=== PATIENT | female | born 1985 | race Caucasian/White ===

== ENCOUNTER 2018-09-22 11:22 | Day surgery (SDC) | payer MEDICAID, OTHER ==
[~2018-09-22] VITALS: Ht 157.5 cm; Wt 77.1 kg
[2018-09-22] VITALS (12 sets, daily range): BP systolic 95–122; BP diastolic 56–73; PULSE 66–75; RESP 12–18; Ht 157.5 cm; Wt 77.1 kg
[~2018-09-22 11:22] MED LIST: GLYCOPYRROLATE 0.4 MG INJ ONE; LIDOCAINE 2% (SDV) 5 ML INJ ONE; PROPOFOL 200 MG INJ ONE; ROCURONIUM 50 MG INJ ONE; SEVOFLURANE 15 MIN ONE
[2018-09-22] MEDS ORDERED: BUPIVACAINE 0.5% (SDV) 30 ML INJ ONE (11:48)
[2018-09-22] MEDS ORDERED: MIDAZOLAM 1 MG/ML 2 ML INJ ONE (11:50)
[2018-09-22] MEDS ORDERED: LIDOCAINE 2%/EPI 30 ML INJ ONE (11:53)
[2018-09-22] MEDS ORDERED: ASPI81TA52 PO (12:01)
--- NOTE | 2018-09-22 13:38 | PREAC ---
Date/Time of Note Date/Time of Note DATE: 09/22/18 TIME: 13:36 Anesthesia Eval and Record Evaluation Time Pre-Procedure Interview DATE: 09/22/18 TIME: 13:36 Age 32 Sex female NPO: 8 hrs Preoperative diagnosis left ankle instability Planned procedure left ankle arthroscopy, brostrum, lateral ligament reconstruction Past Medical History Past Medical History: None Surgery & Anesthesia Issues No known issue Meds Anticoagulation: No Beta Mel within 24 hr: No Reason Beta Mel not given: Pt. not on B-Mel Reported Medications Aspirin (Low Dose Aspirin) 81 Mg Tablet.dr, 81 MG PO DAILY, #30 TAB 09/22/18 Meds reviewed: Yes Allergies Coded Allergies: No Known Drug Allergies (Verified Allergy, Unknown, 09/22/18) Allergies Reviewed: Yes Labs/Studies Labs Reviewed: Reviewed by anesthesiologist test: Negative Pre-procedure Exam Last vitals Vital Signs Date Temp Pulse Resp B/P (MAP) Pulse Ox O2 O2 Flow FiO2 Time Delivery Rate 09/22/18 98.3 75 16 95/63 (74) 98 Room Air 11:34 Airway: Adequate mouth opening, Adequate thyromental dist Mallampati: Mallampati I Teeth: Normal Lung: Normal Heart: Normal ASA Physical Status ASA physical status: 1 Emergency: None Planned Anesthetic General/MAC: LMA Nerve block: Sciatic (left) Planned Pain Management Single shot nerve block, Parenteral pain med Pre-operative Attestations Prior to commencing anesthesia and surgery, the patient was re-evaluated, there was verification of: *The patient's identity *The results of appropriate recent lab work and preoperative vital signs *The above evaluation not changing prior to induction *Anesthetic plan, risk benefits, alternative and complications discussed with patient/family; questions answered; patient/family understands, accepts and wishes to proceed. MADHAV JORGENSEN Sep 22, 2018 13:38
[2018-09-22] MEDS ORDERED: THROMBIN (BOVINE) 5,000 UNIT VIAL TP ONE (14:33)
[2018-09-22] MEDS ORDERED: CA CHLORIDE 10% 10 ML SYRINGE ONE (14:33)
[2018-09-22] MEDS ORDERED: DEXAMETHASONE 4 MG/ML 5 ML INJ ONE (14:42)
[2018-09-22] MEDS ORDERED: ONDANSETRON 4 MG INJ ONE (14:42)
[2018-09-22] MEDS ORDERED: POLYMYXIN/BACITRACIN 1L IRRIG ONE (15:10)
[2018-09-22] MEDS ORDERED: BACITRACIN/POLYMYXIN 28.35 GM OINT TOP ONE (15:10)
[2018-09-22] MEDS ORDERED: NEOSTIGMINE 3 MG/3 ML SYRINGE ONE (16:25)
[2018-09-22] MEDS ORDERED: GLYCOPYRROLATE 0.4 MG INJ ONE (16:25)
--- NOTE | 2018-09-22 16:41 | PAC ---
Date/Time of Note Date/Time of Note DATE: 09/22/18 TIME: 16:41 Post-Anesthesia Notes Post-Anesthesia Note Last documented vital signs Vital Signs Date Temp Pulse Resp B/P (MAP) Pulse Ox O2 O2 Flow FiO2 Time Delivery Rate 09/22/18 98.3 75 16 95/63 (74) 98 Room Air 1641 Activity: WNL Respiratory function: WNL Cardiovascular function: WNL Mental status: Baseline Pain reasonably controlled: Yes Hydration appropriate: Yes Nausea/Vomiting absent: Yes MADHAV JORGENSEN Sep 22, 2018 16:41
[2018-09-22] MEDS ORDERED: hydrALAzine 20 MG INJ IV PRN (17:00)
[2018-09-22] MEDS ORDERED: ALBUTEROL 0.083% (NEB) 2.5 MG/3 ML AMP HHN PRN (17:00)
[2018-09-22] MEDS ORDERED: DIPHENHYDRAMINE 50 MG INJ IV PRN (17:00)
[2018-09-22] MEDS ORDERED: FENTAnyl 50 MCG/ML VIAL IV PRN ×3 (17:00)
[2018-09-22] MEDS ORDERED: METOCLOPRAMIDE 10 MG INJ IV PRN (17:00)
[2018-09-22] MEDS ORDERED: LABETALOL HCL 20MG INJ IV PRN (17:00)
[2018-09-22] MEDS ORDERED: EPHEDrine SULFATE 50 MG/5 ML SYG IV PRN (17:00)
[2018-09-22] MEDS ORDERED: MIDAZOLAM 1 MG/ML 2 ML INJ IV PRN (17:00)
[2018-09-22] MEDS ORDERED: HYDROmorphONE 1 MG/5 ML IV SYRINGE IV PRN ×3 (17:00)
[2018-09-22] MEDS ORDERED: OXYCODONE/ACETAMINOPHEN (5/325) TAB PO PRN ×2 (17:00)
[2018-09-22] MEDS ORDERED: KETOROLAC 30 MG INJ IV PRN (17:00)
[2018-09-22] MEDS ORDERED: MEPERIDINE 25 MG INJ IV PRN (17:00)
[2018-09-22] MEDS ORDERED: ONDANSETRON 4 MG INJ IV PRN (17:00)
--- NOTE | 2018-09-22 17:02 | HPN ---
Date/Time of Note Date/Time of Note DATE: 09/22/18 TIME: 17:02 Interval H&P Admission Note Pt. seen H&P reviewed: No system changes KIMBERLEY BOND MD Sep 22, 2018 17:02
--- NOTE | 2018-09-22 17:07 | OPR ---
Date/Time of Note Date/Time of Note DATE: 09/22/18 TIME: 17:06 Operative Report Procedure Date: Sep 22, 2018 Preoperative Diagnosis Left ankle chronic lateral ligament instability left ankle peroneal tenosynovitis Left ankle chronic synovitis and impingement Postoperative Diagnosis Left ankle chronic lateral ligament instability left ankle peroneal tenosynovitis Left ankle chronic synovitis and impingement left ankle peroneal tenosynovitis Operation/Procedure Performed Left ankle arthroscopy with extensive debridement Left proximal tibial autograft harvest Left ankle Brostrom Carter lateral ankle ligament reconstruction left ankle peroneal tenosynovectomy Surgeon Kimberley Bond MD [employer] DARWIN Kingsley Anesthesia Type: general, other (popliteal) Anesthesiologist: MADHAV JORGENSEN Tourniquet Time: 73 min at 250 mmhg Estimated Blood Loss: minimal Transfusion none Specimen none Grafts/Implants Arthrex Rodger PRP spun at 6% Hct Arthrex Internal Brace Arthrex Amnion Complications none Pt Condition Post Procedure: stable Disposition: PACU Indications The patient is a 32-year-old female with a history of multiple left ankle sprains with pain. She has failed PT and anti-inflammatories and has caused significant pain and worsening instability. Patient has failed nonoperative management including bracing and time in physical therapy and wishes to proceed operative treatment of this chronic injury. The patient acknowledged this and wished to proceed with surgery. RISK NOTE: The patient was explained the risks and benefits of the surgery in the patient's [place] language including, but not limited to infection and bleeding, loss of limb, loss of life, risk of DVT, risk of need for future surgery, risk of injury to blood vessels, nerves, ligaments, or tendons; risk of anesthesia. The patient wished to proceed with this surgery based on these risks. Procedure Description The patient had the correct operative site marked in the preoperative holding area and confirmed with both patient and patient's consent. The patient was brought back in the operative theater, placed supine on the operating table and given regional block anesthesia. The patient was then given 2 g of Ancef preoperatively. Tourniquet placed on the operative extremity thigh non-sterilely. Patient was then given preoperative antibiotics. The thigh was secured onto the thigh tran, flexed and all areas were carefully padded with popliteal fossa spared to avoid any compression. The superficial peroneal nerve branch was marked out. The ankle was then prepped and draped in normal sterile fashion. A timeout was taken and all parties in the room agreed it was the correct patient, correct extremity and correct procedure. A soft tissue distraction strap was applied across the ankle and a soft tissue dissection was then placed across the ankle at approximately 30 pounds of force. Attention was then turned to the ankle joint and using a typical anterior medial, posterior lateral and anterolateral portal with care to avoid injury to the neurovascular structures. A 21 point ankle exam was completed revealing significant anterior lateral and medial synovitis with lateral and medial gutter synovitis and scar tissue formation. There was a hemorrhagic nodule seen in the lateral gutter as well as evidence of anterior tibial osteophyte overhang. The significant amount of scar tissue was thoroughly debrided in the lateral and posterior gutter. The lateral and posterior gutter showed extensive scar tissue that was debrided as well as anterolateral synovitis scarring. All wounds were closed with 4-0 nylon in vertical mattress fashion. The ankle was then reprepped and redraped with a the thigh tran removed with significant care to maintain sterility. All gloves and instruments were changed and new draping was used. Esmarch was brought up and tourniquet was taken to 250 mmHg. An incision was made from several centimeters above the fibula and carried inferior to the sinus Tarsi. This was carried down through the subcutaneous tissues and a 3-0 undyed Vicryl was used to retract the skin. Care was taken at all times to avoid injury to neurovascular structures. The extensor retinaculum was freed up with extensive adherence to the ATFL and CFL. We then identified the peroneal tendons. There was peroneal tenosynovitis of brevis which was debrided; there is no tenosynovitis of the longus which did not require debridement. Tendons were intact with no tears found. The interval between the anterior inferior tibial fibular ligament and the anterior talofibular ligament was identified. A clamp was placed into this interval underneath the anterior talofibular ligament. Using electrosurgery cautery. The anterior talofibular was released. This left a cuff of tissue on the fibula. The calcaneofibular ligament was intact. There is a significant anterior drawer, with all ligaments released. Lateral gutter was again examined and all frayed areas as well as frayed chondral surface on the lateral aspect of the calcaneus with a loose bony debris and chondral fraying and scarring in the lateral gutter and just proximal to the subtalar are that was clearly debrided. Internal brace was initially placed into the Talus with 4.75 mm SwivelLock and sutures were brought out in distal to the ATFL Then a #0 FiberWire was placed in a pants over vest fashion to reattach re maining portion of the anterior talofibular ligament from posterior to anterior. Final stitch anteriorly with 0 PDS followed by a second stitch along the anterior aspect of the lateral gutter and capsule closed with a 2-0 PDS in a pants over vest fashion. A posterior drawer was applied to the ankle and a blanket was rolled up underneath the tibia to allow gravity to reduce the ankle in neutral dorsiflexion and plantarflexion and inversion and eversion. The sutures were then subsequently tied in sequential fashion from posterior to anterior. Excellent stability was obtained. The Internal Brace was then placed into the distal fibula 1.5 cm from the fibular tip with a 3.5 mm Swivellock with controlled tension win neutral dorsiflexion/plantarflexion An anterior drawer was eliminated and ankle have normal range of motion. The wounds were then irrigated again with an leg solution and his retinaculum was reefed and advanced proximally over vest fashion with 3-0 PDS. The peroneal tendon sheath was then closed with 3-0 PDS. Wounds were irrigated thoroughly and VISCOUS PRP was place over the repair and then covered with Amnion then laura sed with3-0 Monocryl followed by a 4-0 Nylon. Platelet poor plasma was placed on the wound dressing. A compression dressing was applied with Xeroform, 4 x 4's and ABDs and the patient was placed into a short leg splint in neutral position. Patient tolerated procedure well and taken to recovery room in stable condition on a leg wedge pillow. At the end of the procedure, all sponge and needle counts were correct. KIMBERLEY BOND MD Sep 22, 2018 17:06
[2018-09-22] MEDS ORDERED: morphine 2 MG INJ IV PRN (17:30)
== END 2018-09-22 18:55 | disposition home or self-care (01) ==
LOC: SDS 11:22
PROVIDERS: ATTEND Orthopaedic Surgery
DX: M25.372 Other instability, left ankle (principal); M65.872 Other synovitis and tenosynovitis, left ankle and foot; M25.872 Other specified joint disorders, left ankle and foot
CPT/HCPCS: 27695; 29898; 73610; 82306; J1100; J1170; J2250; J2405; J2710; J3010; Z7512; Z7610